=== PATIENT | male | born 1935 | race Hispanic/Latino ===

== ENCOUNTER 2016-12-28 14:44 | Outpatient (CLI) | payer MEDICARE ==
--- NOTE | 2016-12-28 16:18 | Ultrasound Report ---
RIGHT UPPER QUADRANT ABDOMINAL ULTRASOUND: 12/28/16 14:44:00 CLINICAL: Abdominal mass. FINDINGS: High-resolution ultrasound demonstrated a somewhat poorly imaged liver with the examination degraded by bowel gas and body habitus.. The liver is normal size with normal overall echogenicity. No liver mass is identified. Normally distended gallbladder with no stones. The gallbladder is partially contracted with a mildly thickened wall measuring 3.5 mm. No evidence of cholelithiasis. Normal intrahepatic and extra hepatic bile ducts. The common bile duct measures 3.7 mm diameter. The pancreas was not well imaged . Normal upper abdominal aorta. The right kidney is normal and measures 11.5 x 6.0 x 5.3cm. No ascites and no abdominal mass identified. IMPRESSION: A negative examination with no mass identified. Recommend CT if clinically suspect mass.
== END 2016-12-28 14:45 | disposition home or self-care (01) ==
LOC: SPVWC 14:44
PROVIDERS: ATTEND Internal Medicine
DX: R19.01 Right upper quadrant abdominal swelling, mass and lump (principal)
CPT/HCPCS: 76705

== ENCOUNTER 2018-06-05 14:41 | Outpatient (CLI) | payer MEDICARE ==
--- NOTE | 2018-06-05 15:30 | XRay Report ---
KUB: 06/05/18 CLINICAL: Urinary calculus. No comparison. FINDINGS: An oval relatively smooth calculus is identified in the left pelvis. The calculus is oriented in line with a left ureteral stent, measures approximately 2 cm maximum diameter and is approximately 4 cm from the distal end of the stent. A tiny round calcification at the distal end of the stent may be a phlebolith outside of the bladder or is less likely a second calculus within the urinary bladder. The proximal end of the ureteral stent appears to be positioned in the upper pole the left kidney. No other calculi are identified. The bowel gas pattern is normal. Mild scoliosis and degenerative changes in the spine. No suspicious bone lesions. IMPRESSION: A 2 cm calculus in the distal left ureter near the UVJ. A 3 mm left pelvic phlebolith versus urinary calculus within the urinary bladder.
== END 2018-06-05 14:42 | disposition home or self-care (01) ==
LOC: SPVIMAG 14:41
PROVIDERS: ATTEND Urology
DX: N20.1 Calculus of ureter (principal); M47.819 Spondylosis without myelopathy or radiculopathy, site unspecified; M41.9 Scoliosis, unspecified; E78.00 Pure hypercholesterolemia, unspecified; I10 Essential (primary) hypertension; J45.909 Unspecified asthma, uncomplicated
CPT/HCPCS: 74018

== ENCOUNTER 2018-06-13 06:05 | Day surgery (SDC) | payer MEDICARE ==
[2018-06-13] MEDS ORDERED: DIPRIVAN 10 MG/ML IV ONE (07:06)
[2018-06-13] MEDS ORDERED: SUBLIMAZE ONE (07:06)
[2018-06-13] MEDS ORDERED: PROAIR IH ONE (07:13)
[2018-06-13] MEDS ORDERED: NARCAN 0.4 MG/1 ML IV PRN (07:26)
[2018-06-13] MEDS ORDERED: ZOFRAN IV PRN (07:26)
[2018-06-13] MEDS ORDERED: DILAUDID IV PRN (07:26)
[2018-06-13] MEDS ORDERED: SUBLIMAZE IV PRN (07:26)
[2018-06-13] MEDS ORDERED: LACTATED RINGERS 1,000 ML IV SCH (08:00)
[2018-06-13 08:06] LABS: INR 0.97 (0.87-1.13); Partial Thromboplastin Time 24.1 Sec. (24.2-36.6)
--- NOTE | 2018-06-13 08:14 | Anesthesia Consultation ---
Anesthesia Consult and Med Hx Date of service: 06/13/18 - Airway Anesthetic Teeth Evaluation: Dentures, Edentulous ROM Head & Neck: Adequate Mental/Hyoid Distance: Adequate Mallampati Class: Class II Intubation Access Assessment: Probably Good - Pulmonary Exam CTA: Yes - Cardiac Exam Cardiac Exam: No Murmur - Pre-Operative Health Status ASA Pre-Surgery Classification: ASA3 Proposed Anesthetic Plan: General - Pulmonary Hx Smoking: No Hx Asthma: Yes (DAILY INHALER; Albuterol MDI 2 puffs preop) SOB: No Home Oxygen Therapy: No Hx Sleep Apnea: Yes (DX SLEEP APNEA WITH CPAP USE.) - Cardiovascular System Hx Hypertension: Yes (X 10 YRS; medication last night) Hx Coronary Artery Disease: No Hx Heart Attack/AMI: No Hx Angina: No Hx Cardia Arrhythmia: Yes (atrial fibrillation; on Eliquis; LD 5 days ago.) Hx Pacemaker: No Hx Internal Defibrillator: No - Central Nervous System Hx Neuromuscular Disorder: No CVA: No Hx Psychiatric Problems: No - Gastrointestinal Hx Gastroesophageal Reflux Disease: Yes (controlled with Pepcid; LD last night. ) - Endocrine Hx Renal Disease: Yes (recurrent kidney stones ) Hx End Stage Renal Disease: No Hx Liver Disease: No Hx Thyroid Disease: No - Hematic Hx Anemia: No - Other Systems Hx Alcohol Use: No Hx Cancer: No Hx Obesity: Yes - Additional Comments Anesthesia Medical History Comments: No GAC, No FHAC
--- NOTE | 2018-06-13 08:14 | Anesthesia Day of Surgery ---
Anesthesia Day of Surgery - Day of Surgery Patient Examined: Yes Patient H&P Reviewed: Yes Patient is NPO: Yes (1899) Beta Blockers: No Cardiac Clearance: No Pulmonary Clearance: No
[2018-06-13] MEDS ORDERED: ROBINUL ONE (09:43)
[2018-06-13] MEDS ORDERED: NACL 0.9% 1000 ML 1,000 ML ONE (09:44)
[2018-06-13] MEDS ORDERED: ANCEF/STERILE WATER 2 GM/20 ML IV NR (10:00)
[2018-06-13] MEDS ORDERED: DILAUDID ONE (11:34)
[2018-06-13] MEDS ORDERED: ZOFRAN ONE (12:00)
--- NOTE | 2018-06-13 12:35 | Post Anesthesia Evaluation ---
- Post Anesthesia Evaluation Patient Participated: Yes Airway Patent: Yes Stable Respiratory Function: Yes Nausea/Vomiting: No Temp > 96.8F: Yes Pain Manageable: Yes Adequeate Hydration: Yes Anesthesia Complications: No
--- NOTE | 2018-06-13 12:56 | Fluoroscopy Report ---
FLUORO RETROGRADE UROGRAPHY FLUOROSCOPY URETER/NEPHROSTOMY DILATATION LEFT INDICATION: Calculus of left ureter. COMPARISON: 06/05/2018 abdomen radiograph. IMAGES/CINE CLIPS: 14+2 FINDINGS: Drug Enforcement Agent images from 9:25 AM demonstrate a left ureteral stent, lumbar spondylosis and a large left hemipelvic density/calculus. Subsequently left old stent removed and stone visualized on ureteroscopy, disintegrated with holmium laser and fragments retrieved, to the extent possible. Left retrograde pyelogram demonstrates prominent/dilated left distal ureter with contrast noted to about the level of the calculus. Final images demonstrate a satisfactorily repositioned left ureteral stent and a slightly smaller appearing left distal ureteral calculus. CONCLUSION: Findings, as above. Please also correlate with Dr. Bird's procedural notes. Thank you for the opportunity to participate in this patient's care.
--- NOTE | 2018-06-13 17:13 | Short Stay Summary ---
Short Stay Documentation Date of service: 06/13/18 - History H&P: obtained from office - Allergies and Medications Current Medications: Allergies No Known Allergies Allergy (Verified 06/01/18 15:58) Home Medications Medication Instructions Recorded Confirmed Last Taken Type ALBUTEROL Inhaler(NF) [VENTOLIN 1 puff IH PRN PRN 06/01/18 06/13/18 06/10/18 09:00 History Inhaler(NF)] Apixaban [Eliquis] 5 mg PO BID 06/01/18 06/13/18 06/08/18 09:00 History Cetirizine HCl [Zyrtec] 10 mg PO DAILY 06/01/18 06/13/18 06/12/18 19:00 History Finasteride [Proscar] 5 mg PO DAILY 06/01/18 06/13/18 06/12/18 19:00 History Fluticasone/Salmeterol [Advair 1 each IH BID 06/01/18 06/13/18 06/12/18 09:00 History 250-50 Diskus] Ibuprofen [Advil 100 MG tab] 200 mg PO Q6H PRN 06/01/18 06/13/18 06/06/18 09:00 History Lisinopril [Zestril] 5 mg PO QDAY 06/01/18 06/13/18 06/11/18 09:00 History Multivit-Min/FA/Lycopen/Lutein 1 each PO DAILY 06/01/18 06/13/18 06/08/18 09:00 History [Centrum Silver Men Tablet] Pravastatin [Pravachol (Nf)] 40 mg PO QHS 06/01/18 06/13/18 06/12/18 21:00 History Tamsulosin HCl [Flomax] 0.8 mg PO DAILY 06/01/18 06/13/18 06/12/18 19:00 History Active Medications Cefazolin Sodium (Ancef/Sterile Water 2 Gm/20 Ml) 2 gm IV PREOP NR Stop: 06/13/18 23:59 Fentanyl (Sublimaze) 50 mcg IV Q5MIN PRN PRN Reason: Pain , Severe (7-10) Stop: 06/13/18 23:59 Hydromorphone HCl (Dilaudid) 0.25 mg IV Q10MIN PRN PRN Reason: Pain, Moderate (4-6) Stop: 06/13/18 23:59 Lactated Ringer's (Lactated Ringers) 1,000 mls @ 42 mls/hr IV DIRECT ADRIANNA Last Admin: 06/13/18 07:55 Dose: 42 mls/hr Documented by: Naloxone HCl (Narcan 0.4 Mg/1 Ml) 0.1 mg IV Q2MIN PRN PRN Reason: Res Rate </= 8 or 02 SAT < 92% Stop: 06/13/18 23:59 Ondansetron HCl (Zofran) 4 mg IV ONCE PRN PRN Reason: Nausea And Vomiting Stop: 06/13/18 23:59 - Brief post op/procedure progress note Date of procedure: 06/13/18 Pre-op diagnosis: LEFT URET 25mm stone Post-op diagnosis: same Procedure: left urs, stent chabgne, fragmentatoin . sbe; stent, rpg; staged due to size and obst prostat Findings: very lg 25mm dense stone hydro/ureter Surgeon: MARIE MACDONALD Estimated blood loss: minimal Pathology: list (stones) Specimen disposition: to lab Condition: stable - Hospital course Hospital course: orpacu home - Disposition Condition at discharge: Good Disposition: DC- TO HOME OR SELFCARE Short Stay Discharge Plan Diet: advance as tolerated Additional Instructions: INCREASE ORAL FLUIDS. AVOID STRAINING. STRAIN URINE. CALL FOR F/U APPT.(HAS A STENT.) Follow up with: MARIE MACDONALD MD [Staff Physician] - 7 Days
[2018-06-13 17:57] VITALS: BP 105/65
--- NOTE | 2018-07-19 13:42 | Operative Report ---
PREOPERATIVE DIAGNOSES: 1. Benign prostatic hypertrophy, massive. 2. Left distal ureteral stone, 25 mm. POSTOPERATIVE DIAGNOSES: 1. Benign prostatic hypertrophy, massive. 2. Left distal ureteral stone, 25 mm. PROCEDURES: Cystoscopy, left ureteroscopy, holmium laser fragmentation, stone basket extraction, stent exchange complicated. SURGEON: Mello Bird MD ANESTHESIA: General. SPECIMENS: Stone. ESTIMATED BLOOD LOSS: Minimal. COMPLICATIONS: None. FINDINGS: Massive prostate obscuring ureteral orifice and massive stone, chronic. CLINICAL INDICATIONS: Counseled RCBA, antibiotics, SCDs. The patient had been counseled on option of seeing the tertiary [facility] urologist he had been referred to. Discussed other options including open treatment at [place], treatment by his previous urologist or the urologist they had referred him to, but he wanted treatment here. He knew our limitations for this or any procedure, desired to proceed. DESCRIPTION OF PROCEDURE: The patient was transferred to the OR suite, supine position, anesthesia, dorsal lithotomy, antibiotics and SCDs, prepped and draped in standard fashion. A 22-Persian scope passed. Ureteral orifice and distal J from previous stent placement were visualized. Wire passed adjacent to this up to the left renal pelvis, was difficult. Stent grasped, pulled out intact. Rigid ureteroscope ACMI passed, cannulated the ureteral orifice, passed up to the stone. Holmium laser passed. This was a very tedious process due to the massive stone. This was not just a long stone. It was a wide stone and a deep stone in all 3 dimensions, so massive in size. Stone was fragmented into smaller pieces. Fragments were dropped within the bladder. We sequentially did this as best as possible. There was some limitation of visualization and due to the duration of the procedure and some bleeding, mild but expected with this amount of stone. A stent was replaced after this wire was backloaded over cystoscope. A 6-Persian double-J stent was passed over the wire under direct and fluoroscopic visualization. Exam under anesthesia, bilateral descended testicles; prostate, no nodules. The patient awakened and transferred to PACU. PLAN: This is a planned expected staged procedure due to the massive size of the stone and other urologist unable to do this. JOB# [id number] ATS/NTS
== END 2018-06-13 16:20 | disposition home or self-care (01) ==
LOC: OR 06:05
PROVIDERS: ATTEND Urology
DX: N20.1 Calculus of ureter (principal); N40.0 Benign prostatic hyperplasia without lower urinary tract symptoms; E78.00 Pure hypercholesterolemia, unspecified; J45.909 Unspecified asthma, uncomplicated; G47.30 Sleep apnea, unspecified; K21.9 Gastro-esophageal reflux disease without esophagitis; E66.9 Obesity, unspecified; I48.91 Unspecified atrial fibrillation; I10 Essential (primary) hypertension; Z98.49 Cataract extraction status, unspecified eye; Z68.30 Body mass index [BMI] 30.0-30.9, adult; M47.896 Other spondylosis, lumbar region
CPT/HCPCS: 36415; 52356; 74420; 74485; 82365; 85610; 85730; C1726; C1758; C1769; C2617; J0690; J1170; J2405; J2704; J3010; J7030; J7120; Q9967

== ENCOUNTER 2018-07-04 12:09 | Day surgery (SDC) | payer MEDICARE ==
[2018-07-04] MEDS ORDERED: SUBLIMAZE ONE (12:34)
[2018-07-04] MEDS ORDERED: DIPRIVAN 10 MG/ML IV ONE (12:35)
[2018-07-04] MEDS ORDERED: ROBINUL ONE (12:40)
[2018-07-04] MEDS ORDERED: DECADRON ONE (12:40)
[2018-07-04] MEDS ORDERED: XYLOCAINE MPF 2% ONE (12:40)
[2018-07-04] MEDS ORDERED: NEO SYNEPHRINE/NS Syringe(OR USE) IV ONE (12:40)
[2018-07-04] MEDS ORDERED: PROVENTIL IH NR (13:30)
[2018-07-04 13:33] LABS: INR 0.99 (0.87-1.13)
[2018-07-04 13:34] LABS: Partial Thromboplastin Time 30.1 Sec. (24.2-36.6)
--- NOTE | 2018-07-04 13:50 | Anesthesia Consultation ---
Anesthesia Consult and Med Hx - Airway Anesthetic Teeth Evaluation: Dentures Mallampati Class: Class II Intubation Access Assessment: Good - Pulmonary Exam CTA: Yes - Pre-Operative Health Status ASA Pre-Surgery Classification: ASA3 Proposed Anesthetic Plan: General (cardiac clearance on chart from March ) - Pulmonary Hx Smoking: No Hx Asthma: Yes (DAILY INHALER) SOB: No Hx Sleep Apnea: Yes (DX SLEEP APNEA WITH CPAP USE.) - Cardiovascular System Hx Hypertension: Yes (X 10 YRS) Hx Coronary Artery Disease: No Hx Heart Attack/AMI: No Hx Angina: No Hx Cardia Arrhythmia: Yes (atrial fibrillation; on Eliquis; LD 5 days ago.) Hx Pacemaker: No Hx Internal Defibrillator: No - Central Nervous System Hx Neuromuscular Disorder: No CVA: No Hx Back Pain: Yes Hx Psychiatric Problems: No - Gastrointestinal Hx Gastroesophageal Reflux Disease: Yes (controlled with Pepcid; LD last night. ) - Endocrine Hx End Stage Renal Disease: No Hx Liver Disease: No Hx Thyroid Disease: No - Hematic Hx Anemia: No - Other Systems Hx Alcohol Use: No Hx Cancer: No Hx Obesity: Yes
--- NOTE | 2018-07-04 13:52 | Anesthesia Day of Surgery ---
Anesthesia Day of Surgery - Day of Surgery Patient Examined: Yes Patient H&P Reviewed: Yes Patient is NPO: Yes
[2018-07-04] MEDS ORDERED: DILAUDID IV PRN (13:54)
[2018-07-04] MEDS ORDERED: ZOFRAN IV PRN (13:54)
[2018-07-04] MEDS ORDERED: PEPCID PO NR (14:00)
[2018-07-04] MEDS ORDERED: ANCEF/STERILE WATER 2 GM/20 ML IV NR (14:10)
[2018-07-04] MEDS ORDERED: LACTATED RINGERS 1,000 ML IV SCH (14:12)
[2018-07-04] MEDS ORDERED: VERSED IV ONE (14:39)
--- NOTE | 2018-07-04 15:31 | Short Stay Summary ---
Short Stay Documentation Date of service: 07/04/18 - History H&P: obtained from office - Allergies and Medications Current Medications: Allergies No Known Allergies Allergy (Verified 06/01/18 15:58) Home Medications Medication Instructions Recorded Confirmed Last Taken Type ALBUTEROL Inhaler(NF) [VENTOLIN 1 puff IH PRN PRN 06/01/18 07/04/18 3 Days Ago History Inhaler(NF)] ~07/01/18 Apixaban [Eliquis] 5 mg PO BID 06/01/18 06/26/18 06/30/18 History Cetirizine HCl [Zyrtec] 10 mg PO DAILY 06/01/18 06/26/18 07/03/18 History Finasteride [Proscar] 5 mg PO DAILY 06/01/18 07/04/18 07/03/18 History Fluticasone/Salmeterol [Advair 1 each IH BID 06/01/18 07/04/18 5 Days Ago History 250-50 Diskus] ~06/29/18 Ibuprofen [Advil 100 MG tab] 200 mg PO Q6H PRN 06/01/18 07/04/18 07/01/18 History Lisinopril [Zestril] 5 mg PO QDAY 06/01/18 06/26/18 07/03/18 History Multivit-Min/FA/Lycopen/Lutein 1 each PO DAILY 06/01/18 06/26/18 06/30/18 History [Centrum Silver Men Tablet] Pravastatin [Pravachol (Nf)] 40 mg PO QHS 06/01/18 07/04/18 07/03/18 History Tamsulosin HCl [Flomax] 0.8 mg PO DAILY 06/01/18 07/04/18 07/03/18 History Active Medications Albuterol (Proventil) 2.5 mg IH PREOP NR Stop: 07/04/18 23:00 Last Admin: 07/04/18 13:32 Dose: 2.5 mg Documented by: Cefazolin Sodium (Ancef/Sterile Water 2 Gm/20 Ml) 2 gm IV PREOP NR Stop: 07/04/18 20:00 Famotidine (Pepcid) 20 mg PO PREOP NR Stop: 07/04/18 23:00 Last Admin: 07/04/18 13:30 Dose: 20 mg Documented by: Hydromorphone HCl (Dilaudid) 0.25 mg IV Q10MIN PRN PRN Reason: Pain, Moderate (4-6) Stop: 07/05/18 06:00 Lactated Ringer's (Lactated Ringers) 1,000 mls @ 100 mls/hr IV DIRECT ADRIANNA Last Admin: 07/04/18 13:34 Dose: 100 mls/hr Documented by: Ondansetron HCl (Zofran) 4 mg IV ONCE PRN PRN Reason: Nausea And Vomiting - Brief post op/procedure progress note Date of procedure: 07/04/18 Pre-op diagnosis: Left uret stone 20mm Post-op diagnosis: same Procedure: urs, sbe, stent change, laser, staged Anesthesia: GETA Findings: mustl stones hydro Surgeon: MARIE MACDONALD Estimated blood loss: minimal Pathology: list (tones) Specimen disposition: to lab Condition: stable - Hospital course Hospital course: orpacuhome - Disposition Condition at discharge: Good Disposition: DC-01 TO HOME OR SELFCARE Short Stay Discharge Plan Activity: advance as tolerated Diet: advance as tolerated Follow up with: MARIE MACDONALD MD [Staff Physician] - 7 Days
[2018-07-04 17:24] VITALS: BP 117/60
--- NOTE | 2018-07-05 08:04 | Fluoroscopy Report ---
FLUOROSCOPY RETROGRADE UROGRAPHY: HISTORY: Left ureteral stone. FINDINGS: Fluoroscopy was provided by radiology during retrograde urography by the urologist. 6 fluoroscopic images were captured. Compared to 06/13/18 exam. The large calculus in the distal left ureter and left ureteral stent appear unchanged. Left ureteroscopy was performed. Holmium laser was utilized to break up the stone. The left ureteral stent was replaced. Please correlate with Dr. Gracia is operative report. IMPRESSION: Left ureteral stone removal. Left ureteral stent replacement.
--- NOTE | 2018-07-19 13:09 | Operative Report ---
PREOPERATIVE DIAGNOSES: 1. Left distal ureteral 25 mm stone fragments, left ureteral. 2. Benign prostatic hypertrophy, massive. POSTOPERATIVE DIAGNOSES: 1. Left distal ureteral 25 mm stone fragments, left ureteral. 2. Benign prostatic hypertrophy, massive. PROCEDURE: Cystoscopy, ureteroscopy, holmium laser fragmentation, stone basket extraction, stent exchange. FINDINGS: Massive stones in the left distal ureter with multiple fragments from previous procedure, stent exchange. This is a planned staged second procedure. Obstructing prostate with obstruction of the left ureter either by compression or overlapping additionally due to chronic obstruction, large left ureter, tortuous with multiple folds, which could also cause obstruction. SURGEON: Mello Bird MD ANESTHESIA: General. SPECIMENS: Stone. ESTIMATED BLOOD LOSS: Minimal. COMPLICATIONS: None. CLINICAL INDICATIONS: Counseled RCBA, antibiotics, SCDs, same discussion, the patient had discussions of tertiary care or other urologist management as before. Desired to proceed with this next stage expected. DESCRIPTION OF PROCEDURE: The patient was transferred to the OR suite in supine position, anesthesia, dorsal lithotomy, prepped and draped in standard fashion. A 22-Chadian scope was passed, the massive large lateral prostatic lobes straying into the bladder obscuring ureteral orifice. Glidewire passed adjacent to the stent under fluoroscopic visualization up to the left renal pelvis. Stent grasped, pulled out intact. Next, rigid ureteroscope passed. We passed this up to the stones. Stones were sequentially removed with triceps, forceps into the bladder. Additional larger stones were fragmented with the holmium laser into smaller and smaller pieces and these fragments were removed. Scope was then passed up to the proximal ureter. No significant large residual stones identified. Scope was withdrawn. Wire was backloaded on the cystoscope. A 6-Chadian double-J stent was passed over the wire under direct and fluoroscopic visualization. When the wire and string was removed, there was a nice proximal J, nice distal J in the bladder. Scope removed. Fluoroscopic visualization confirmed. PLAN: This is stage for future additional treatments, future stent placements, other treatments of the left kidney and stent removal trial. JOB# [id number] ATS/NTS
== END 2018-07-04 17:15 | disposition home or self-care (01) ==
LOC: OR 12:09
PROVIDERS: ATTEND Urology
DX: N20.1 Calculus of ureter (principal); N40.0 Benign prostatic hyperplasia without lower urinary tract symptoms; E78.00 Pure hypercholesterolemia, unspecified; I48.91 Unspecified atrial fibrillation; I10 Essential (primary) hypertension; G47.30 Sleep apnea, unspecified; K21.9 Gastro-esophageal reflux disease without esophagitis; M19.90 Unspecified osteoarthritis, unspecified site; E66.9 Obesity, unspecified; Z90.49 Acquired absence of other specified parts of digestive tract; Z68.33 Body mass index [BMI] 33.0-33.9, adult; Z79.899 Other long term (current) drug therapy; Z98.49 Cataract extraction status, unspecified eye; Z86.2 Personal history of diseases of the blood and blood-forming organs and certain disorders involving the immune mechanism
CPT/HCPCS: 36415; 52356; 74420; 82365; 85610; 85730; C1758; C1769; C2617; J1100; J2250; J2370; J2704; J3010; J7120; Q9967